=== PATIENT | female | born 1950 | race Caucasian/White ===

== ENCOUNTER 2019-09-22 15:59 | Outpatient (CLI) | payer BC | END 2019-09-22 16:00 | disposition home or self-care (01) | LOC: LAB 15:59 | DX: R05 Cough (principal); R50.9 Fever, unspecified; Z20.828 Contact with and (suspected) exposure to other viral communicable diseases | CPT/HCPCS: 81599 ==

== ENCOUNTER 2023-12-05 15:43 | Emergency (ER) | payer BC, MEDICARE ==
--- NOTE | 2023-12-05 16:18 | ED Physician Documentation ---
PD HPI HEAD INJURY - Stated complaint Stated Complaint: GLF,NECK/BACK DISCOMFORT,NAUSEA - Chief complaint Chief Complaint: Ext Problem - History obtained from History obtained from: Patient - History of Present Illness Mechanism of head injury: Fell Where head injury occurred: Other (at lodge here on [place] 2 days ago.) Timing - onset: How many days ago (2) Pain level max: 4 Pain level now: 3 Location of injury: Left, Front Quality of pain: Aching Associated symptoms: LOC (she states she had gotten into hotel room with her dog who was on a leash. The dog was around her legs nearby and next pt remembers awakening ion the floor. Does not feel it was more than few seconds. Bruising left forehead/face area.), Neck pain, Other (she had local swelling and bruising left forehead and the bruising has). No: Nausea / vomiting, Paresthesias Symptoms worsen with: Palpation Similar symptoms before: Has not had sx before Recently seen: Not recently seen (she talked with her Primary care in [place] and he urged her to come to ER for evaluation prior to flying home tomorrow (to ensure no ICH, fractures, sinus fluid etc).) Review of Systems Constitutional: denies: Fever, Chills Nose: denies: Rhinorrhea / runny nose, Congestion Throat: denies: Sore throat Cardiac: denies: Chest pain / pressure Respiratory: denies: Dyspnea, Cough Neurologic: reports: Altered mental status (she states she is feeling slightly foggy thought process and considers if concussion, though had some of that prior. Does not feel there was ataxia or such that led to recent fall.) PD PAST MEDICAL HISTORY - Past Medical History Cardiovascular: Hypertension, High cholesterol, Coronary artery disease, [place] Respiratory: None Neuro: None Endocrine/Autoimmune: None GI: Hiatal hernia [employer]: None : Other HEENT: None Psych: None Musculoskeletal: Osteoarthritis Derm: None - Past Surgical History Ortho: Hip replacement Cardiovascular: Cardiac catheterization HEENT: Cataracts - Allergies Allergies/Adverse Reactions: Allergies Allergy/AdvReac Type Severity Reaction Status Date / Time codeine Allergy Rash Verified 12/05/23 15:57 - Social History Does the pt smoke?: No Smoking Status: Never smoker Does the pt drink ETOH?: Yes ETOH Use: Wine Does the pt have substance abuse?: No - Immunizations Immunizations are current?: Yes - POLST Patient has POLST: No PD ED PE NORMAL - Vitals Vital signs reviewed: Yes - General General: Alert and oriented X 3, No acute distress, Well developed/nourished - HEENT HEENT: Other (prominent purple and red bruising left forehead and left periorbital and lateral cheek. Right periorbital ecchymosis without tenderness. Some neck tenderness but good ROM. Normal neuro. ) - Neck Neck: Supple, no meningeal sign, Other (tender lower midline and right side neck on exam. ) - Cardiac Cardiac: Other (no chestwall tenderness. ) - Respiratory Respiratory: No respiratory distress, Clear bilaterally - Abdomen Abdomen: Soft, Non tender - Back Back: No CVA TTP, Other (tender in upper thoracic area midline and right medial scapular area without deformity. Lumbar not tender. ) - Derm Derm: Normal color, Warm and dry - Neuro Neuro: Alert and oriented X 3, No motor deficit, No sensory deficit, Normal speech Results - Vitals Vitals: Vital Signs - 24 hr 12/05/23 12/05/23 12/05/23 15:47 15:57 18:22 Temperature 36.6 C Heart Rate 65 61 60 Respiratory 16 16 18 Rate Blood Pressure 170/72 H 150/77 H 161/89 H O2 Saturation 98 96 99 Oxygen O2 Source Room air - Labs Labs: Laboratory Tests 12/05/23 12/05/23 16:59 16:59 WBC 5.5 RBC 3.54 L Hgb 11.3 L Hct 33.6 L MCV 94.9 MCH 31.9 H MCHC 33.6 RDW 12.6 Plt Count 210 MPV 8.9 Neut # (Auto) 3.3 Lymph # (Auto) 1.3 L Pratt # (Auto) 0.7 Eos # (Auto) 0.2 Baso # (Auto) 0.0 Absolute Nucleated RBC 0.00 Nucleated RBC % 0.0 Sodium 125 L Potassium 4.6 H Chloride 91 L Carbon Dioxide 27 Anion Gap 7.0 BUN 30 H Creatinine 0.8 Estimated GFR (MDRD) 70 L Glucose 91 Calcium 9.3 Magnesium 1.7 Total Bilirubin 0.4 AST 20 ALT 15 Alkaline Phosphatase 41 L Total Protein 6.0 L Albumin 3.9 Globulin 2.1 Albumin/Globulin Ratio 1.9 Lipase 27 TSH 2.12 PD Medical Decision Making - ED course Complexity details: reviewed results (main lab test abnormal is sodium 125 with reported baseline chronic low about 130. Else okay. CT scans without fractures nor ICH. Sinuses clear. I feel she is okay for flying home as no obvious altitude/pressurized cabin cautions. Her dramatic faical bruising could give airline pause, so given note.), considered differential (facial and forehead injury with hematoma that has obviously gravitated to around eye and cheek. Given the periorbital pattern, also would consider skull fax or faical fractures. Can get imaging. She does not remember the fall itself, but was around her puppy and the leash, so presumes tripped.), d/w patient Reviewed Lab Results: has sodium of 125, checked due to her note of feeling foggy though process. I talked with her PMD who states chronic low sodium but typically about 130. Pt states she has been drinking lots of water for hydration, so cautioned to not over-hydrate. But may be worse chronic low sodium. Her PMD has doen tests of renal function, urine tests, etc and no obvious cause for low sodium chronically. I would also consider her PMD to have pt with Holter/Ziopatch given the not remembered/aware of mechanical fall. But has not had other near syncopes, palpitations etc, but does state lightheaded at times not just postural. Departure - Departure Disposition: 01 Home, Self Care Clinical Impression: Hyponatremia, Facial hematoma, Accidental fall Condition: Stable Record reviewed to determine appropriate education?: Yes Comments: Remain hydrated but do not excessively drink a lot of water as that could potentially dilute your sodium and contribute to some of your hyponatremia. Obviously you have had that low sodium over the longer term so there can be some kidney absorption or other process as well that is not totally normal. Your CT scans of the head face and neck did not show any fractures or intracranial bleeding or sinus fluid pressure etc. I feel your safe and okay for flying. I wrote a note to that effect if you need to show to the airline. On blood testing your sodium is 125 which does sound lower than usual for you. Your creatinine is 0.8 with a GFR of 70 which is in a good range. Your other electrolytes such as Pat potassium and magnesium are normal. On the phone with Dr. Roche, I did not neglect to mention my thought of potentially is having you do an outpatient heart monitor for a week or so given your episodes of lightheadedness at times and this fall episode that led to this injury. Your heart rhythm appears normal here but it would still be prudent to ensure you do not have irregular rhythm episodically. Please convey that to him. Forms: PCP List, Activity restrictions Discharge Date/Time: 12/05/23 18:24
[2023-12-05 17:04] LABS: BASOPHILS % (AUTO) 0.5 %; EOSINOPHILS # (AUTO) 0.2 10^3/uL (0.0-0.7); EOSINOPHILS % (AUTO) 2.9 %; HCT - HEMATOCRIT 33.6 % (37.0-47.0); HGB - HEMOGLOBIN 11.3 g/dL (12.0-16.0); LYMPHOCYTES # (AUTO) 1.3 10^3/uL (1.5-3.5); LYMPHOCYTES % (AUTO) 23.5 %; MEAN CORPUSCULAR HEMOGLOBIN 31.9 pg (27.0-31.0); MEAN CORPUSCULAR HGB CONC 33.6 g/dL (32.0-36.0); MEAN CORPUSCULAR VOLUME 94.9 fL (81.0-99.0); MEAN PLATELET VOLUME 8.9 fL (7.9-10.8); MONOCYTES # (AUTO) 0.7 10^3/uL (0.0-1.0); NEUTROPHILS # (AUTO) 3.3 10^3/uL (1.5-6.6); NEUTROPHILS % (AUTO) 59.9 %; PLT - PLATELET COUNT 210 10^3/uL (130-450); RED BLOOD COUNT 3.54 10^6/uL (4.20-5.40); RED CELL DISTRIBUTION WIDTH 12.6 % (12.0-15.0); WHITE BLOOD COUNT 5.5 x10^3/uL (4.8-10.8)
[2023-12-05 17:20] LABS: MAGNESIUM 1.7 mg/dL (1.7-2.3)
[2023-12-05 17:26] LABS: ALBUMIN 3.9 g/dL (3.2-5.5); ALBUMIN/GLOBULIN RATIO 1.9 (1.0-2.2); BILIRUBIN,TOTAL 0.4 mg/dL (0.2-1.0); CALCIUM 9.3 mg/dL (8.5-10.3); CREATININE 0.8 mg/dL (0.6-1.3); POTASSIUM 4.6 mmol/L (3.5-4.5)
[2023-12-05 17:35] LABS: THYROID STIMULATING HORMONE 2.12 uIU/mL (0.34-5.60)
--- NOTE | 2023-12-05 17:37 | CT Report ---
PROCEDURE: Head WO INDICATIONS: fall with face/head injury, HERRERA TECHNIQUE: Noncontrast 4.5 mm thick angled axial sections acquired from the foramen magnum to the vertex. For r adiation dose reduction, the following was used: automated exposure control, adjustment of mA and/or kV according to patient size. COMPARISON: None. FINDINGS: Image quality: Diagnostic. CSF spaces: Basal cisterns are patent. No extra-axial fluid collections. Ventricles are normal in size and shape. Brain: No midline shift. No intracranial masses or hemorrhage. No mass effect. Delgado-white matter i nterface is normal. There cerebral volume loss for age with resultant ventricular and sulcal prominen ce. There are periventricular and deep white matter chronic small vessel ischemic changes. Atheroscle rotic calcifications are noted in the intracranial segments of the bilateral internal carotid arterie s. Skull and face: Left periorbital soft tissue contusion/hematoma. Calvarium and visualized facial bon es are intact, without suspicious lesions. Sinuses: Visualized sinuses and mastoids are clear. IMPRESSION: No acute intracranial pathology. Left periorbital soft tissue contusion/hematoma without underlying calvarial fractures. Reviewed by: Lawrence Garcia MD on 12/05/2023 4:36 PM ABHINAV Approved by: Lawrence Garcia MD on 12/05/2023 4:36 PM [email or web address] Station ID: [id number]
--- NOTE | 2023-12-05 17:42 | CT Report ---
PROCEDURE: Cervical Spine WO INDICATIONS: fall with facial injury and neck pain, HERRERA TECHNIQUE: Noncontrast 3 mm thick sections acquired from the skull base to the T4 level. Sagittal and coronal r eformats were then constructed. For radiation dose reduction, the following was used: automated exp osure control, adjustment of mA and/or kV according to patient size. COMPARISON: None. FINDINGS: Image quality: Diagnostic. Bones: No acute fractures or dislocations. No acute compression fractures of the vertebral bodies. Craniocervical junction is intact. C1-C2 relationship is preserved. Visualized superior ribs are inta ct. Minimal anterolisthesis of C4 and C5 likely related to spondylitic changes. No asymmetric widening of the posterior elements. No adjacent soft tissue edema. Chronic appearing ossification over the tip o f the dens. Moderate multilevel cervical spondylosis most severe from C4-5 through C6-7. Soft tissues: Prevertebral soft tissues are normal in thickness. No paravertebral hematomas. No ap ical pneumothoraces. IMPRESSION: CT cervical spine without acute fracture or traumatic malalignment. Moderate multilevel cervical spondylosis. Reviewed by: Lawrence Garcia MD on 12/05/2023 4:41 PM ABHINAV Approved by: Lawrence Garcia MD on 12/05/2023 4:41 PM ABHINAV Station ID: [id number]
--- NOTE | 2023-12-05 17:50 | CT Report ---
PROCEDURE: Maxillofacial WO INDICATIONS: fall with facial injury left TECHNIQUE: Noncontrast 1.5 mm thick axial images acquired from the mandible through the frontal sinuses, with co wes and sagittal reformatting. For radiation dose reduction, the following was used: automated ex posure control, adjustment of mA and/or kV according to patient size. COMPARISON: None. FINDINGS: Image quality: Diagnostic. Bones and teeth: Orbital webb are intact. Sinus webb show no fracture or deformity. Nasal bones and septum are intact. Leftward deviation of the osseous nasal septum with prominent osseous nasal s pur. Visualized portions of the mandible demonstrate no fractures or subluxation. Zygomatic arches a re intact. Pterygoid plates are intact. Visualized portions of the skull base and auditory canals a re intact. Sinuses: Paranasal sinuses are aerated, without fluid levels, mucosal thickening, or mucoceles. Mas toid air cells are aerated. Soft tissues: There is left periorbital soft tissue contusion/hematoma. There is also soft tissue sw elling of the left face and cheek. No fluid collection seen. No enlarged lymph nodes. No soft tissue lacerations or debris. Vascular: Visualized vascular structures appear normal in the absence of contrast. Bony vascular fo ramina and canals are intact. IMPRESSION: Left facial soft tissue contusion and left periorbital soft tissue contusion/hematoma wi thout underlying calvarial or facial fractures. Reviewed by: Lawrence Garcia MD on 12/05/2023 4:49 PM ABHINAV Approved by: Lawrence Garcia MD on 12/05/2023 4:49 PM [email or web address] Station ID: [id number]
[2023-12-05 18:24] VITALS: BP 161/89; O2SAT 99
== END 2023-12-05 18:24 | disposition home or self-care (01) ==
LOC: ED 15:43
DX: S05.12XA Contusion of eyeball and orbital tissues, left eye, initial encounter (principal); S05.11XA Contusion of eyeball and orbital tissues, right eye, initial encounter; W19.XXXA Unspecified fall, initial encounter; W22.8XXA Striking against or struck by other objects, initial encounter; Y93.K9 Activity, other involving animal care; Y92.59 Other trade areas as the place of occurrence of the external cause; E87.1 Hypo-osmolality and hyponatremia
CPT/HCPCS: 36415; 80053; 83690; 83735; 84443; 85025; 93005; 99284